=== PATIENT | female | born 1995 | race Caucasian/White ===

== ENCOUNTER 2021-11-17 16:35 | Emergency (ER) | payer BC ==
[~2021-11-17] VITALS: Ht 162.6 cm; Wt 61.4 kg
[2021-11-17] MEDS ORDERED: PROZAC20 M1 PO (17:03)
[2021-11-17] MEDS ORDERED: ADDERALL 5 MG TA5 MG PO (17:03)
[2021-11-17 17:23] LABS: BASO # 0.03 K/mm3 (0.02-0.10); EOS # 0.04 K/mm3 (0.04-0.40); EOS % 0.5 % (1.0-5.0); HEMATOCRIT 42.5 % (37.0-47.0); HEMOGLOBIN 14.3 g/dL (12.5-16.0); LYMPH# 1.42 K/mm3 (1.50-4.00); MEAN CELL VOLUME 90 fl (78-100); MEAN CORPUSCULAR HEMOGLOBIN 30 pg (27-31); MEAN CORPUSCULAR HGB CONC 34 g/dL (33-37); MEAN PLATELET VOLUME 10.1 fl (7.4-10.4); MONO # 0.37 K/mm3 (0.20-0.80); NEU # 6.35 K/mm3 (1.40-6.50); PLATELET COUNT 286 K/mm3 (130-400); RED BLOOD COUNT 4.74 M/mm3 (4.10-5.30); RED CELL DISTRIBUTION WIDTH 12.8 % (11.5-14.5); WHITE BLOOD COUNT 8.2 K/mm3 (4.8-10.8)
[2021-11-17 17:39] LABS: URINE APPEARANCE CLOUDY; URINE BILIRUBIN NEGATIVE (NEGATIVE); URINE BLOOD 50 ery/uL (NEGATIVE); URINE COLOR YELLOW; URINE GLUCOSE NEGATIVE (NEGATIVE); URINE KETONE 1+ (NEGATIVE); URINE LEUKOCYTE ESTERASE 1+ (NEGATIVE); URINE NITRATE NEGATIVE (NEGATIVE); URINE PROTEIN(semi-quant) TRACE (NEGATIVE); URINE UROBILINOGEN NORMAL (NORMAL)
[2021-11-17 17:40] LABS: URINE MUCUS PRESENT (NOT PRESENT); URINE WBC >50 /hpf (0-3)
[2021-11-17] MEDS ORDERED: CIPRO250 M1 PO (17:55)
[2021-11-17 18:02] VITALS: BP 115/85
[2021-11-17] MEDS ORDERED: PYRIDIUM200 M2 PO (18:03)
== END 2021-11-17 18:03 | disposition home or self-care (01) ==
LOC: ED 16:35
PROVIDERS: Family Medicine
DX: N39.0 Urinary tract infection, site not specified (principal); F17.290 Nicotine dependence, other tobacco product, uncomplicated; Z28.311 Partially vaccinated for COVID-19